=== PATIENT | female | born 1990 | race Caucasian/White ===

== ENCOUNTER 2017-07-26 20:55 | Emergency (ER) | payer BC, OTHER ==
--- NOTE | 2017-07-26 21:53 | EDPHY ---
H & P Stated Complaint: pt bitten in face by friends dog, shot status of dog unk Time Seen by Provider: 07/26/17 21:25 HPI/ROS: HPI CHIEF COMPLAINT: Multiple facial lacerations from dog bite. HISTORY OF PRESENT ILLNESS: Patient is a 26-year-old female she is otherwise healthy, she presents emergency room after she was bit in the face by a dog. She states this happened at her friend's house in a private residence. She is unsure about the shots of the dog. Additionally she is unsure about her tetanus shot. She presents to the emergency room with a upper right lateral lip laceration, additionally a left cheek laceration. These rather large in gaping and will need repair. I discussed at length risk versus benefit about closing her facial lacerations from a dog bite. Given the cosmetic nature of these and how large the ER she would benefit from closure. She understands there is risk in closing the bite. She be placed on antibiotics prophylactically. Additionally will update her tetanus shot. She has verbally consented for closure of these facial lacerations with a dog bite. Additionally the police would be contacted for reporting of the dog bite. Past Medical History: Denies significant medical history Past Surgical History: Denies significant surgical history Social History: Denies drugs alcohol tobacco Family History: Noncontributory ROS REVIEW OF SYSTEMS: A comprehensive 10 point review of systems is otherwise negative aside from elements mentioned in the history of present illness. Exam Constitutional nontoxic appearing triage nursing summary reviewed, vital signs reviewed, awake/alert. Eyes normal conjunctivae and sclera, EOMI, PERRLA. HENT normal inspection, atraumatic, moist mucus membranes, no epistaxis, neck supple/ no meningismus, no raccoon eyes. Respiratory clear to auscultation bilaterally, normal breath sounds, no respiratory distress, no wheezing. Cardiovascular rate normal, regular rhythm, no murmur, no edema, distal pulses normal. Gastrointestinal soft, non-tender, no rebound, no guarding, normal bowel sounds, no distension, no pulsatile mass. Genitourinary no CVA tenderness. Musculoskeletal no midline vertebral tenderness, full range of motion, no calf swelling, no tenderness of extremities, no meningismus, good pulses, neurovascularly intact. Skin face: Upper lip laceration right-sided 3 cm upper lip laceration that involve the vermilion border. Additionally the left cheek shows a 4 cm laceration. Neurologic awake, alert and oriented x 3, AAOx3, moves all 4 extremities equally, motor intact, sensory intact, CN II-XII intact, normal cerebellar, normal vision, normal speech. Psychiatric normal mood/affect. Heme/Lymph/Immune no lymphadenopathy. Differential Diagnosis: Includes but is not limited to in a particular order dog bite, multiple facial lacerations, soft tissue injury, wound injury Medical Decision Making: Plan for this patient will copiously irrigate her wounds. Will update her tetanus shot will start on Augmentin. Will close her lacerations. Re-evaluation: Laceration Repair Procedure: Verbal Consent was obtained, Under sterile conditions, The patient had lidocaine with epinephrine used approximately 3ccs to local anesthetize the 3CM Right Upper Lip Laceration Through Vermilion Border. The wound was copiously irrigated with sterile fluid, the wound was explored for foreign bodies there were none visualized, the wound was explored with a sterile glove to the base. There are no deep structures involved, including no arterial injury. TWO 6.O PROLENE, ONE 6.O Rapide, interrupted Sutures were placed in this patient's laceration. She had good close approximation of the wound edges. She Tolerated this well. Laceration Repair Procedure: Verbal Consent was obtained, Under sterile conditions, The patient had lidocaine with epinephrine used approximately 3ccs to local anesthetize the LEFT CHEEK 4CM Laceration. The wound was copiously irrigated with sterile fluid, the wound was explored for foreign bodies there were none visualized, the wound was explored with a sterile glove to the base. There are no deep structures involved, including no arterial injury. SIX 6.O PROLENE interrupted Sutures were placed in this patient's laceration. He had good close approximation of the wound edges. He Tolerated this well. Patient understands keep her wounds clean clean, dry and protected. Watch closely for signs of infection. Take Augmentin as prescribed. We discussed risk of closure with dog bite she understands. She tolerated the closure very well. Source: Patient - Personal History LMP (Females 10-55): Over 28 Days Ago Current Tetanus Diphtheria and Acellular Pertussis (TDAP): Unsure - Medical/Surgical History Hx Asthma: No Hx Chronic Respiratory Disease: No Hx Diabetes: No Hx Cardiac Disease: No Hx Renal Disease: No Hx Cirrhosis: No Hx Alcoholism: No Hx HIV/AIDS: No Hx Splenectomy or Spleen Trauma: No Other PMH: appendectomy - Social History Smoking Status: Never smoked Constitutional: Initial Vital Signs Temperature (C) 36.7 C 07/26/17 21:24 Heart Rate 95 07/26/17 21:24 Respiratory Rate 18 07/26/17 21:24 Blood Pressure 116/75 07/26/17 21:24 O2 Sat (%) 96 07/26/17 21:24 O2 Delivery Mode Room Air Allergies/Adverse Reactions: gluten Allergy (Verified 07/26/17 21:27) Milk Containing Products [dairy] Allergy (Verified 07/26/17 21:27) tree nut Allergy (Verified 07/26/17 21:27) Home Medications: Medication Instructions Recorded Amoxicillin/Clavulanate Pot 875 mg PO BID #14 tab 07/26/17 [Augmentin 875 MG TAB (*)] Unk Steroid For Poison Saira 07/26/17 Medical Decision Making - Data Points Medications Given: Discontinued Medications Amoxicillin/Clavulanate Potassium (Augmentin 875mg) 875 mg PO EDNOW ONE PRN Reason: Protocol Stop: 07/26/17 22:04 Last Admin: 07/26/17 22:09 Dose: 875 mg Diphtheria/Tetanus/Acell Pertussis (Boostrix) 0.5 ml IM .ONCE ONE Stop: 07/26/17 22:04 Last Admin: 07/26/17 22:09 Dose: 0.5 ml Departure - Departure Disposition: Home, Routine, Self-Care Clinical Impression: Dog bite Qualifiers: Encounter type: initial encounter Qualified Code(s): W54.0XXA - Bitten by dog, initial encounter Facial laceration Qualifiers: Encounter type: initial encounter Qualified Code(s): S01.81XA - Laceration without foreign body of other part of head, initial encounter Condition: Good Instructions: Care For Your Stitches (ED), Laceration (ED) Additional Instructions: 1. Your sutures need to be removed in 7 days. 2. Please watch her wound closely for further signs of infection. 3. Antibiotics as prescribed 4. You have any questions or concerns please return emergency room. Referrals: NONE *PRIMARY CARE P,. [Primary Care Provider] - As per Instructions Prescriptions: Amoxicillin/Clavulanate Pot [Augmentin 875 MG TAB (*)] 875 mg PO BID #14 tab
[2017-07-26] MEDS ORDERED: TDAP ADULT 0.5 ML INJ (BOOSTRIX) IM ONE ×2 (22:03→22:07)
[2017-07-26] MEDS ORDERED: AMOXICILLIN/CLAVULANATE POT 875/125 MG TAB PO ONE ×2 (22:03→22:08)
[2017-07-26 23:32] VITALS: BP 123/81
== END 2017-07-26 23:32 | disposition home or self-care (01) ==
PROC: 0HQ1XZZ Repair Face Skin, External Approach (ICD-10-PCS; principal; 2017-07-26)
DX: S01.81XA Laceration without foreign body of other part of head, initial encounter (principal); Z23 Encounter for immunization; W54.0XXA Bitten by dog, initial encounter; Y92.009 Unspecified place in unspecified non-institutional (private) residence as the place of occurrence of the external cause